=== PATIENT | female | born 1930 | race Caucasian/White ===

== ENCOUNTER → 2018-10-07 | Outpatient (CLI) | payer MEDICARE, OTHER ==
[~2018-10-07] MED LIST: ASPI81CH PO; ATEN50; CALCA500CH PO; CEPH500 PO; CYCL10 PO; LEVSOD75 PO; LOSHYD; METF500C PO; METO100ER PO; Micro-K10 MEQ PO; NIFE10; NIFE30ER PO; PRAV20; PRAV20 PO; TELM80 PO
[2018-10-07 17:47] LABS: Percent Saturation 14.2 % (15.0-50.0)
== END | disposition home or self-care (01) ==
LOC: LAB 16:43 → LAB SHORT 16:43
PROVIDERS: Internal Medicine Hematology & Oncology
DX: D50.9 Iron deficiency anemia, unspecified (principal)
CPT/HCPCS: 83540; 83550

== ENCOUNTER → 2019-05-17 | Outpatient (CLI) | payer MEDICARE, OTHER ==
[2019-05-18 13:32] LABS: Stool Occult Bld Immuno 1 Negative (NEGATIVE); Stool Occult Bld Immuno 2 Negative (NEGATIVE)
== END | disposition home or self-care (01) ==
LOC: LAB SHORT 05:55 → LAB 05:55 → LAB FUT 05-12 10:15
PROVIDERS: Internal Medicine Gastroenterology
DX: K57.30 Diverticulosis of large intestine without perforation or abscess without bleeding (principal); D64.9 Anemia, unspecified; R10.84 Generalized abdominal pain; Z86.010 Personal history of colon polyps
CPT/HCPCS: 82274

== ENCOUNTER → 2019-08-20 | Outpatient (CLI) | payer MEDICARE, OTHER ==
[2019-08-20 18:45] LABS: Percent Saturation 17.8 % (15.0-50.0)
== END | disposition home or self-care (01) ==
LOC: LAB 16:31 → LAB SHORT 16:31
PROVIDERS: Internal Medicine Hematology & Oncology
DX: D50.9 Iron deficiency anemia, unspecified (principal)
CPT/HCPCS: 82728; 83540; 83550

== ENCOUNTER → 2019-08-21 | Outpatient (CLI) | payer MEDICARE, OTHER ==
[2019-08-24 13:40] LABS: Campylobacter Sp Not Detected (NOT DETECT)
[2019-08-24 13:41] LABS: Adenovirus F 40/41 Not Detected (NOT DETECT); Astrovirus Not Detected (NOT DETECT); Cryptosporidium Not Detected (NOT DETECT); Cyclospora Cayetanensis Not Detected (NOT DETECT); E. Coli O157 Not Detected (NOT DETECT); Entamoeba Histolytica Not Detected (NOT DETECT); Enteroaggregative E. coli-EAEC Not Detected (NOT DETECT); Enteropathogenic E. coli-EPEC Not Detected (NOT DETECT); Enterotoxigenic E. coli-ETEC Not Detected (NOT DETECT); Giardia Lamblia Not Detected (NOT DETECT); Norovirus GI/GII Not Detected (NOT DETECT); Plesiomonas Shigelloides Not Detected (NOT DETECT); Rotavirus A Not Detected (NOT DETECT); Salmonella Sp Not Detected (NOT DETECT); Sapovirus Not Detected (NOT DETECT); Shiga Toxin-prod E. coli-STEC Not Detected (NOT DETECT); Shigella/Enteroin E. coli-EIEC Not Detected (NOT DETECT); Vibrio Cholerae Not Detected (NOT DETECT); Vibrio Sp Not Detected (NOT DETECT); Yersinia Enterocolitica Not Detected (NOT DETECT)
== END | disposition home or self-care (01) ==
LOC: LAB SHORT 13:45 → LAB 13:45
PROVIDERS: Internal Medicine Hematology & Oncology
DX: R19.7 Diarrhea, unspecified (principal)
CPT/HCPCS: 0097U

== ENCOUNTER 2019-12-05 16:33 | Inpatient (IN) | payer MEDICARE, OTHER ==
[~2019-12-05] VITALS: Ht 157.5 cm; Wt 78.0 kg
[~2019-12-05 16:33] MED LIST changes: +K-Dur20 MEQ PO; -Micro-K10 MEQ PO; -NIFE30ER PO; +NIFE90ER PO; -PRAV20 PO; +Pravachol40 MG PO; +TELM40 PO; -TELM80 PO
[2019-12-05] MEDS ORDERED: CLARITIN10 M1 PO (17:07)
[2019-12-05] MEDS ORDERED: FURO40 PO (17:07)
[2019-12-05 17:19] LABS: BASOPHILS ABSOLUTE AUTO 0.05 K/mm3 (0.00-0.23); BASOPHILS PERCENT AUTO 1 % (0-2); EOSINOPHILS ABSOLUTE AUTO 0.04 K/mm3 (0.00-0.68); EOSINOPHILS PERCENT AUTO 0 % (0-6); Hematocrit 32.3 % (33.0-51.0); Hemoglobin 11.3 g/dL (11.5-16.0); IMMATURE GRAN ABSOLUTE AUTO 0.06 K/mm3 (0.00-0.10); IMMATURE GRAN PERCENT AUTO 1 % (0-1); LYMPHOCYTES ABSOLUTE AUTO 1.33 K/mm3 (0.84-5.20); LYMPHOCYTES PERCENT AUTO 14 % (21-46); MONOCYTES ABSOLUTE AUTO 0.49 K/mm3 (0.16-1.47); MONOCYTES PERCENT AUTO 5 % (4-13); Mean Corpuscular HGB 31.7 pg (26.0-34.0); Mean Corpuscular Volume 91 fL (80-100); Mean Platelet Volume 8.1 fL (9.1-12.4); NEUTROPHILS ABSOLUTE AUTO 7.62 K/mm3 (1.96-9.15); NEUTROPHILS PERCENT AUTO 80 % (41-73); Platelet Count 537 K/mm3 (150-400); RDW Coefficient Variation 12.4 % (11.7-14.2); RDW Standard Deviation 41.4 fL (35.1-46.3); Red Blood Cell Count 3.56 M/mm3 (3.80-5.20); White Blood Cell Count 9.59 K/mm3 (4.00-11.30)
[2019-12-05 17:33] LABS: Albumin, Blood 3.8 g/dL (3.4-5.0); Bilirubin, Total 0.5 mg/dL (0.1-1.0); Bun/Creatinine Ratio 17.1 (12.0-20.0); Creatinine, Blood 1.29 mg/dL (0.40-1.00); Globulin, Blood 3.8 g/dL (2.2-4.0); Potassium, Blood 4.1 mmol/L (3.5-5.5); Total Protein, Blood 7.6 g/dL (6.4-8.2)
[2019-12-05 18:19] LABS: Source, Urine Clean Catch
[2019-12-05 18:32] LABS: Appearance, Urine Clear (Clear); Bilirubin, Urine Neg (Neg); Blood, Urine 1+ (Neg); Glucose Qualitative, Urine 1+ (Neg); Ketones, Urine Neg (Neg); Leukocyte Esterase, Urine Neg (Neg); Nitrite, Urine Neg (Neg); Protein, Urine 4+ (Neg); Urobilinogen, Urine NORM (Normal)
[2019-12-05 18:53] LABS: Color, Urine Pale Yellow (P-Yellow)
[2019-12-05 18:57] LABS: Bacteria Few /hpf; Squamous Epithelial Cells Few /hpf (Few)
[2019-12-05] MEDS ORDERED: VITAMIN D325 MCG PO (19:43)
[2019-12-05] MEDS ORDERED: VITAMIN B-121000 MCG PO (19:44)
--- NOTE | 2019-12-06 00:52 | NUR ---
ARRIVED FROM THE ER @0025. SHE TRANSFERRED SELF TO BED AND WAS ABLE TO WALK INTO THE BR UNASSISTED. NO COMPLAINTS OF DIZZINESS, H/A. C/O NAUSEA WHILE RETURNING FROM THE BR, THAT QUICKLY RESOLVED ONCE BACK IN BED. PT IN DROPLET ISOLATION. PATIENT IS ABLE TO PULL SELF UP IN BED FOR REPOSITIONING.
[2019-12-06 00:58] LABS: Bun/Creatinine Ratio 15.2 (12.0-20.0); Calcium, Blood 8.8 mg/dL (8.5-10.1); Creatinine, Blood 1.25 mg/dL (0.40-1.00)
[2019-12-06 04:57] LABS: BASOPHILS ABSOLUTE AUTO 0.03 K/mm3 (0.00-0.23); BASOPHILS PERCENT AUTO 0 % (0-2); EOSINOPHILS ABSOLUTE AUTO 0.02 K/mm3 (0.00-0.68); EOSINOPHILS PERCENT AUTO 0 % (0-6); Hematocrit 30.9 % (33.0-51.0); Hemoglobin 10.9 g/dL (11.5-16.0); IMMATURE GRAN ABSOLUTE AUTO 0.05 K/mm3 (0.00-0.10); IMMATURE GRAN PERCENT AUTO 1 % (0-1); LYMPHOCYTES ABSOLUTE AUTO 1.62 K/mm3 (0.84-5.20); LYMPHOCYTES PERCENT AUTO 16 % (21-46); MONOCYTES ABSOLUTE AUTO 0.96 K/mm3 (0.16-1.47); MONOCYTES PERCENT AUTO 10 % (4-13); Mean Corpuscular HGB 31.6 pg (26.0-34.0); Mean Corpuscular HGB Conc 35.3 g/dL (31.5-36.5); Mean Corpuscular Volume 90 fL (80-100); Mean Platelet Volume 8.1 fL (9.1-12.4); NEUTROPHILS ABSOLUTE AUTO 7.45 K/mm3 (1.96-9.15); NEUTROPHILS PERCENT AUTO 74 % (41-73); Platelet Count 526 K/mm3 (150-400); RDW Coefficient Variation 12.5 % (11.7-14.2); RDW Standard Deviation 40.7 fL (35.1-46.3); Red Blood Cell Count 3.45 M/mm3 (3.80-5.20); White Blood Cell Count 10.13 K/mm3 (4.00-11.30)
[2019-12-06 05:24] LABS: Bun/Creatinine Ratio 15.4 (12.0-20.0); Creatinine, Blood 1.3 mg/dL (0.40-1.00); Potassium, Blood 3.6 mmol/L (3.5-5.5)
--- NOTE | 2019-12-06 05:54 | NUR ---
NOTIFIED DR TELLO OF THE CONTINUED HTN 173/66. THE SODIUM OF 123, AND CONTINUED ELEVATED CREATININE AND BUN. SHE CHANGED THE PARAMETERS FOR THE IV FLUID TO BE GIVEN REGARDLESS OF THE SBP. THE PATIENT WAKES EASILY FOR VS AND BLOOD DRAWS. NO COMPLAINTS OF NAUSEA, OR PAIN. NO ACUTE CHANGES.
[2019-12-06 09:24] LABS: Bun/Creatinine Ratio 13.5 (12.0-20.0); Calcium, Blood 8.9 mg/dL (8.5-10.1); Creatinine, Blood 1.56 mg/dL (0.40-1.00); Potassium, Blood 3.6 mmol/L (3.5-5.5)
[2019-12-06 13:02] LABS: Bun/Creatinine Ratio 13.8 (12.0-20.0); Calcium, Blood 8.5 mg/dL (8.5-10.1); Creatinine, Blood 1.52 mg/dL (0.40-1.00); Potassium, Blood 3.9 mmol/L (3.5-5.5)
--- NOTE | 2019-12-06 19:05 | NUR ---
SHIFT SUMMARY NO ACUTE CHANGES THROUGHOUT SHIFT. VSS. PT DENIED ANY C/O CHEST PAIN/PRESSURE OR SOB. PT C/O NAUSEA X1 TODAY, MEDICATED PER EMAR. IVF CONTINUE TO INFUSE W/ OUT DIFFICULTY. PT TOLERATED FULL LIQUID DIET FOR DINNER; ORDERS TO ADVANCE TOLERATED. PT SLEPT MOST OF THE DAY. CURRENTLY RESTING IN BED IN NO DISTRESS. REMAINS ON ISOLATION PRECAUTIONS FOR R/O COVID-19. REPORT GIVEN TO ONCOMING RN.
[2019-12-07 04:09] LABS: BASOPHILS ABSOLUTE AUTO 0.04 K/mm3 (0.00-0.23); BASOPHILS PERCENT AUTO 1 % (0-2); EOSINOPHILS ABSOLUTE AUTO 0.14 K/mm3 (0.00-0.68); EOSINOPHILS PERCENT AUTO 2 % (0-6); Hematocrit 28.9 % (33.0-51.0); Hemoglobin 9.9 g/dL (11.5-16.0); IMMATURE GRAN ABSOLUTE AUTO 0.02 K/mm3 (0.00-0.10); IMMATURE GRAN PERCENT AUTO 0 % (0-1); LYMPHOCYTES ABSOLUTE AUTO 1.27 K/mm3 (0.84-5.20); LYMPHOCYTES PERCENT AUTO 15 % (21-46); MONOCYTES ABSOLUTE AUTO 0.93 K/mm3 (0.16-1.47); MONOCYTES PERCENT AUTO 11 % (4-13); Mean Corpuscular HGB 31.7 pg (26.0-34.0); Mean Corpuscular HGB Conc 34.3 g/dL (31.5-36.5); Mean Corpuscular Volume 93 fL (80-100); Mean Platelet Volume 8.4 fL (9.1-12.4); NEUTROPHILS ABSOLUTE AUTO 5.85 K/mm3 (1.96-9.15); NEUTROPHILS PERCENT AUTO 71 % (41-73); Platelet Count 480 K/mm3 (150-400); RDW Coefficient Variation 12.8 % (11.7-14.2); RDW Standard Deviation 43.5 fL (35.1-46.3); Red Blood Cell Count 3.12 M/mm3 (3.80-5.20); White Blood Cell Count 8.25 K/mm3 (4.00-11.30)
--- NOTE | 2019-12-07 04:18 | NUR ---
SHIFT SUMMARY PT HAS RESTED MOST OF THE NIGHT. SHE HAS NOT HAD ANY EPISODE OF N/V/D THIS SHIFT. ABD CONFIGURATION MANAGEMENT ADVISOR UPON PALPATION. BOWEL TONES HYPERACTIVE. PT IS A/OX3, SLOW TO RESPOND, AND CHICKEN RANCH. RESP E/U ON RA. SHE DENIES PAIN OR SOB. AMBULATES WITH SBA TO BATHROOM. VITALS ARE STABLE. COVID-19 RESULTS STILL PENDING AT THIS TIME. PT FREE FROM FEVER, COUGH AND SOB. BED IN LOWEST POSITION, CALL LIGHT WITHIN REACH. WILL CONTINUE TO MONITOR AND REPORT TO ONCOMING RN.
[2019-12-07 04:24] LABS: Albumin, Blood 2.7 g/dL (3.4-5.0); Anion Gap 8 mmol/L (6-16); Blood Urea Nitrogen 20 mg/dL (8-24); Bun/Creatinine Ratio 12.7 (12.0-20.0); CO2, Blood 23 mmol/L (21-32); Calcium, Blood 7.8 mg/dL (8.5-10.1); Chloride, Blood 96 mmol/L (98-108); Creatinine, Blood 1.57 mg/dL (0.40-1.00); Glomerular Filtration Rate 33 (60-); Glucose, Blood 107 mg/dL (70-99); Phosphorus, Blood 3.6 mg/dL (2.5-4.9); Potassium, Blood 3.7 mmol/L (3.5-5.5); Sodium, Blood 127 mmol/L (136-145)
--- NOTE | 2019-12-07 12:52 | NUR ---
Patient is lying in bed and alert. Patient immediately shares her life story, her family history and her spiritual journey (from [employer] to [place]). Patient is quite talkative and pleasant. Patient has many worries centered around her health and the careless people who do not follow the social distancing practices. Patient also tells me about the of her at [facility] in September. I listen empathically and provide a calming presence, anxiety containment, grief support, pastoral preparole counseling aide and prayer. Patient responds well and shows signs of reduced stress. I will continue to remain available to patient and family.
--- NOTE | 2019-12-07 13:26 | NUR ---
DISCHARGE SUMMARY NO ACUTE CHANGES THROUGHOUT SHIFT. VSS. PT REMAINED AWAKE & ALERT, COOPERATIVE W/ CARE. DENIED ANY C/O CHEST PAIN/PRESSURE, SOB, OR NAUSEA/VOMITING. PT'S DIET ADVANCED TO REGULAR TODAY, TOLERATED WELL. DISCHARGE EDUCATION WAS COMPLETED W/ PT. DISCUSSED MED REC & FOLLOW UP INSTRUCTIONS. PT VERBALIZED UNDERSTANDING & STATED SHE WOULD FOLLOW UP INSTRUCTED & TAKE MEDS PRESCRIBED. NO NEW PRECRIPTIONS NEEDED. DISCUSSED THAT PT IS TO REMAIN IN [place] UNTIL COVID-19 RESULTS COME BACK; COVID-19 HANDOUT PROVIDED FOR PT REFERENCE. PT VERBALIZED UNDERSTANDING. SPOKE W/ PT'S DAUGHTER ON TELEPHONE & EXPLAINED THAT ALL DISCHARGE PAPERWORK IS W/ PT & SHE CAN CALL IF SHE HAS ANY QUESTIONS. PT DISCHARGED HOME TO [facility]. TRANSPORTED OFF UNIT VIA WHEELCHAIR IN STABLE CONDITION; PT FACEMASK IN PLACE. PT PICKED UP AT ER ENTRANCE BY HER DAUGHTER TOVA FOR TRANSPORT HOME. ALL PAPERWORK & BELONGINGS SENT W/ PT.
== END 2019-12-07 13:37 | disposition home or self-care (01) | DRG 392 ==
LOC: ER 16:33 → PCU 20:46
PROVIDERS: Internal Medicine; Physician Assistant; ADMIT Family Medicine
DX: K52.9 Noninfective gastroenteritis and colitis, unspecified (principal); E87.1 Hypo-osmolality and hyponatremia; E86.0 Dehydration; I16.0 Hypertensive urgency; I12.9 Hypertensive chronic kidney disease with stage 1 through stage 4 chronic kidney disease, or unspecified chronic kidney disease; N18.3 Chronic kidney disease, stage 3 (moderate); E11.22 Type 2 diabetes mellitus with diabetic chronic kidney disease; D63.1 Anemia in chronic kidney disease; E66.9 Obesity, unspecified; E78.00 Pure hypercholesterolemia, unspecified; E03.9 Hypothyroidism, unspecified; D47.3 Essential (hemorrhagic) thrombocythemia; N83.8 Other noninflammatory disorders of ovary, fallopian tube and broad ligament; R93.5 Abnormal findings on diagnostic imaging of other abdominal regions, including retroperitoneum; Z79.84 Long term (current) use of oral hypoglycemic drugs; Z79.82 Long term (current) use of aspirin; Z79.899 Other long term (current) drug therapy; Z87.891 Personal history of nicotine dependence; Z23 Encounter for immunization; Z68.31 Body mass index [BMI] 31.0-31.9, adult
CPT/HCPCS: 36415; 74176; 80048; 80053; 80069; 81001; 82947; 83690; 85025; 90686; 93005; 93010; 96361; 96374; 96375; 99285-25; A9270-GY; J0360; J1815; J2405; J7030; J7120; U0002